=== PATIENT | female | born 1975 | race Caucasian/White ===

== ENCOUNTER → 2021-10-09 | Day surgery (SDC) | payer BC, OTHER ==
[~2021-10-09] MED LIST: ALL DAY ALLERGY10 M2 PO; HYDROCODON-ACE1 EAC4 PO; LEVOTHYROXINE75 MC1 PO; LISINOPRIL2.5 MG PO; LYRICA150 MG PO; MUCINEX600 MG PO; PREVACID 24HR15 MG PO; VOLTAREN ARTHRI20 GM TP
== END | disposition home or self-care (01) ==
LOC: OR 08:54
DX: M47.26 Other spondylosis with radiculopathy, lumbar region (principal); I10 Essential (primary) hypertension; E78.00 Pure hypercholesterolemia, unspecified; J45.909 Unspecified asthma, uncomplicated; K21.9 Gastro-esophageal reflux disease without esophagitis; E07.9 Disorder of thyroid, unspecified; Z79.1 Long term (current) use of non-steroidal anti-inflammatories (NSAID); Z79.899 Other long term (current) drug therapy
CPT/HCPCS: 76000; J1040